=== PATIENT | female | born 2000 | race Caucasian/White ===

== ENCOUNTER 2023-01-23 20:43 | Emergency (ER) | payer OTHER ==
[~2023-01-23] VITALS: Ht 160 cm; Wt 63.5 kg
[2023-01-23 20:52] VITALS: BP 125/72
[2023-01-23] MEDS ORDERED: CEPH500 PO (22:31)
== END 2023-01-23 22:36 | disposition home or self-care (01) ==
LOC: ER 20:43
DX: R21 Rash and other nonspecific skin eruption (principal); Z88.8 Allergy status to other drugs, medicaments and biological substances
CPT/HCPCS: 99282; A9270

== ENCOUNTER 2023-03-21 22:48 | Emergency (ER) | payer OTHER ==
[~2023-03-21] VITALS: Ht 162.6 cm; Wt 79.4 kg
[~2023-03-21 22:48] MED LIST: CEPH500 PO
[2023-03-21 22:56] VITALS: BP 109/76
[2023-03-21] MEDS ORDERED: NARCAN4 M1 (23:36)
[2023-03-21] MEDS ORDERED: Bactrim Ds Tab1 EACH PO (23:36)
== END 2023-03-22 | disposition home or self-care (01) ==
LOC: ER 22:48
DX: F32.A Depression, unspecified (principal); F19.10 Other psychoactive substance abuse, uncomplicated; L03.317 Cellulitis of buttock; L02.31 Cutaneous abscess of buttock; Z88.8 Allergy status to other drugs, medicaments and biological substances; Z23 Encounter for immunization
CPT/HCPCS: 90471; 90715; 99282-25; A9270

== ENCOUNTER 2023-04-03 00:26 | Emergency (ER) | payer OTHER ==
[~2023-04-03] VITALS: Ht 162.6 cm; Wt 59.0 kg
[~2023-04-03 00:26] MED LIST changes: +Bactrim Ds Tab1 EACH PO; +NARCAN4 M1
[2023-04-03 01:47] VITALS: BP 103/61
[2023-04-03] MEDS ORDERED: AMOCLA875 PO (02:58)
[2023-04-03] MEDS ORDERED: FLUC200 PO (03:01)
== END 2023-04-03 03:03 | disposition home or self-care (01) ==
LOC: ER 00:26
DX: J02.0 Streptococcal pharyngitis (principal); Z88.8 Allergy status to other drugs, medicaments and biological substances; Z79.899 Other long term (current) drug therapy
CPT/HCPCS: 87430; 99283; A9270